=== PATIENT | female | born 1930 | race Caucasian/White ===

== ENCOUNTER 2017-12-14 10:49 | Day surgery (SDC) | payer MEDICARE ==
[~2017-12-14] VITALS: Ht 152.4 cm; Wt 52.0 kg
[~2017-12-14 10:49] MED LIST: ASPI325T17 PO; LEVO25TA4 PO; POLY17PO5 PO
[2017-12-14] MEDS ORDERED: LIDOCAINE/PF 1%, 30ML ONE (11:23)
== END 2017-12-14 11:53 | disposition home or self-care (01) ==
LOC: CACL 10:49
PROVIDERS: ATTEND Internal Medicine Cardiovascular Disease
DX: Z45.09 Encounter for adjustment and management of other cardiac device (principal); I63.9 Cerebral infarction, unspecified; Z79.82 Long term (current) use of aspirin; Z98.890 Other specified postprocedural states; Z79.899 Other long term (current) drug therapy; Z88.1 Allergy status to other antibiotic agents; Z88.8 Allergy status to other drugs, medicaments and biological substances
CPT/HCPCS: 33284; J3490

== ENCOUNTER → 2018-01-11 | Outpatient (CLI) | payer MEDICARE | END | disposition home or self-care (01) | LOC: CVU 16:07 | PROVIDERS: ATTEND Family Medicine | DX: I63.9 Cerebral infarction, unspecified (principal); E03.9 Hypothyroidism, unspecified; G50.0 Trigeminal neuralgia; Z86.73 Personal history of transient ischemic attack (TIA), and cerebral infarction without residual deficits | CPT/HCPCS: 93922 ==